=== PATIENT | male | born 1990 | race Hispanic/Latino ===

== ENCOUNTER 2018-09-30 12:40 | Emergency (ER) | payer OTHER, BC ==
[2018-09-30 12:46] VITALS: BP 137/87; PULSE 70; RESP 18; TEMP 98.2; O2SAT 100
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
== END 2018-09-30 13:21 | disposition home or self-care (01) ==
LOC: H.ER 12:40
DX: M54.2 Cervicalgia (principal); S13.4XXA Sprain of ligaments of cervical spine, initial encounter; V43.52XA Car driver injured in collision with other type car in traffic accident, initial encounter